=== PATIENT | female | born 1945 | race Caucasian/White ===

== ENCOUNTER → 2018-06-12 11:09 | Outpatient (CLI) | payer MEDICARE, OTHER, SELFPAY ==
--- NOTE | 2018-06-12 | DI.MG.S_ITS ---
BILATERAL DIGITAL SCREENING MAMMOGRAM 3D/2D WITH CAD: 06/12/2018 CLINICAL: Routine screening. Comparison is made to exams dated: 04/06/2016 mammogram, 09/03/2014 mammogram, and 02/16/2013 mammogram - [facility]. The tissue of both breasts is predominantly fatty. Current study was also evaluated with a Computer Aided Detection (CAD) system. No significant masses, calcifications, or other findings are seen in either breast. There has been no significant interval change. IMPRESSION: NEGATIVE There is no mammographic evidence of malignancy. A 1 year screening mammogram is recommended. This exam was interpreted at Station ID: [id number]. NOTE: For mammograms, a report in lay terms will be sent to the patient. Approximately 15% of breast malignancies will not be visualized mammographically. In the management of a palpable breast mass, a negative mammogram must not discourage biopsy of a clinically suspicious lesion. Electronically Signed By: Ethan johnson/sander:06/12/2018 12:35:18 letter sent: Normal Exam ACR BI-RADS Category 1: Negative [id number]
== END ==
PROVIDERS: Family Provider Nurse Practitioner; PCP Nurse Practitioner; Visit Provider Nurse Practitioner
DX: Z12.31 Encounter for screening mammogram for malignant neoplasm of breast (principal)
CPT/HCPCS: 77063; 77067

== ENCOUNTER → 2019-08-26 09:59 | Outpatient (CLI) | payer MEDICARE, OTHER, SELFPAY ==
[2019-08-26 10:35] LABS: BUN Creatinine Ratio 15.7 (6-22); Blood Urea Nitrogen 11 mg/dL (7-17); Estimated Glomerular Filt Rate > 60.0 mL/min (>60)
--- NOTE | 2019-08-26 11:23 | DI.CT.S_ITS ---
PROCEDURE: CT ABDOMEN PELVIS W CON INDICATIONS: ABDOMINAL PAIN TECHNIQUE: After the administration of oral and intravenous contrast, 5 mm thick sections acquired from the diaphragms to the symphysis. 5 mm thick coronal and sagittal reformats were performed. For radiation dose reduction, the following was used: automated exposure control, adjustment of mA and/or kV according to patient size. COMPARISON: [facility], CT, ABDOMEN/PELVIS WITH CONTRAST, 06/18/2016, 14:15. FINDINGS: Image quality: Excellent. ABDOMEN: Lung bases: Lung bases are clear. Heart size is normal. Solid organs: Liver is normal in size and enhancement. Gallbladder contains multiple small densely calcified gallstones each of the size that could result in cystic duct or common duct obstruction. Biliary system is non-dilated. Pancreas enhances normally. Spleen is normal in size and enhancement. No adrenal nodules. Kidneys are normal in size and enhancement, without hydronephrosis. Peritoneum and bowel: Stomach, small bowel, and colon loops are normal in caliber and wall thickness. No free fluid or air. Nodes and vessels: No retroperitoneal or mesenteric adenopathy. Aorta and inferior vena cava are normal in caliber. Miscellaneous: No ventral hernias. PELVIS: Genitourinary: Bladder wall thickness is normal. The the left adnexa appears to contain a solid rounded mass, measuring up to 2.5 cm AP and 2.8 cm transverse. This is contiguous with the sigmoid colon in that area which does not show evidence of acute diverticulitis. Miscellaneous: No inguinal hernias or adenopathy. Bones: No suspicious bony lesions. No vertebral body compression fractures. IMPRESSION: Possible left adnexal mass, measuring up to 2.5 x 2.8 cm. Pelvic ultrasound likely is warranted for more accurate assessment. Mild diverticulosis involves the sigmoid colon, no acute diverticulitis. Incidental note is made of densely calcified gallstones within the gallbladder lumen of a size that could easily transit into the cystic duct or common duct. Depending on clinical status followup surgical consultation related to this finding may be warranted. Dictated by: Lavon Ny M.D. on 08/26/2019 at 12:46 Approved by: Lavon Ny M.D. on 08/26/2019 at 12:50
== END ==
PROVIDERS: Family Provider Nurse Practitioner; PCP Nurse Practitioner; Referring Provider Student in an Organized Health Care Education/Training Program; Visit Provider Student in an Organized Health Care Education/Training Program
DX: R10.32 Left lower quadrant pain (principal); K57.30 Diverticulosis of large intestine without perforation or abscess without bleeding; K80.20 Calculus of gallbladder without cholecystitis without obstruction
CPT/HCPCS: 36415; 74177; 82565; 84520; Q9967

== ENCOUNTER → 2019-09-01 14:12 | Outpatient (CLI) | payer MEDICARE, OTHER, SELFPAY ==
--- NOTE | 2019-09-01 | DI.US.S_ITS ---
PROCEDURE: US PELVIC COMPLETE INDICATIONS: LEFT OVARIAN CYST TECHNIQUE: Real-time scanning was performed of the pelvic organs, with image documentation. Additional endovaginal scanning was necessary due to incomplete visualization of the adnexal and endometrial structures by transabdominal scanning. COMPARISON: None. FINDINGS: Transabdominal scanning: Limited scanning through the kidneys shows no hydronephrosis. No pathologic free abdominal or pelvic fluid. Endovaginal scanning: Uterus: Uterus is normal in size at 6.7 x 3.2 x 4 cm. The cervix appears thickened, with a nodule measuring 1.2 x 0.6 x 1 cm. The endometrium measures 2 mm in combined thickness. Ovaries: The right ovary measures 1.7 by 1 by 1.3 cm. The left ovary is not well-seen, secondary to shadowing from adjacent bowel gas. There is a left adnexal mass seen that measures 3 x 2.4 x 2.8 cm. IMPRESSION: Poor visualization of the left ovary, yet a 3 cm solid appearing left adnexal mass can be seen. This correlates well with the recent CT imaging. Further evaluation is recommended, beginning with a gynecological protocol MRI (without and with contrast) (assuming that there is no contraindication). Potential cervical mass seen measuring up to 1.3 cm. Please correlate with physical examination findings/direct visualization. Dictated by: Taurus Haas M.D. on 09/01/2019 at 14:35 Approved by: Taurus Haas M.D. on 09/01/2019 at 14:39
== END ==
PROVIDERS: Family Provider Nurse Practitioner; PCP Nurse Practitioner; Referring Provider Nurse Practitioner; Visit Provider Nurse Practitioner
DX: N83.202 Unspecified ovarian cyst, left side (principal)
CPT/HCPCS: 76830; 76856

== ENCOUNTER → 2019-09-04 11:44 | Outpatient (CLI) | payer MEDICARE, OTHER, SELFPAY ==
--- NOTE | 2019-09-04 | DI.MRI.S_ITS ---
PROCEDURE: MR PELVIS WO/W CON INDICATIONS: Other noninflammatory disorders of ovary, fallopia TECHNIQUE: Coronal HASTE, sagittal breath-hold T2 FSE; axial T1 FSE with and without fat saturation through the pelvis. Optional long- and short-axis uterine nonbreath-hold T2 FSE through the uterus. Sagittal or axial dynamic VIBE during administration of contrast. Post-contrast axial or coronal VIBE/2-D FLASH with fat saturation from the iliac crests to the symphysis. Optional diffusion weighted imaging and ADC may be performed. COMPARISON: [facility], CT, KIDNEY/ URETER/BLADDER, 04/24/2012, 4:58. [facility], CT, ABDOMEN/PELVIS WITH CONTRAST, 06/18/2016, 14:15. [facility], US, US PELVIC COMPLETE, 09/01/2019, 14:27. [facility], CT, CT ABDOMEN PELVIS W CON, 08/26/2019, 11:16. FINDINGS: Image quality: There is mild motion artifact. Uterus: Uterus is normal in size for age. Endometrium is normal in thickness. Junctional zone is normal in thickness at 12 mm or less. No discrete uterine mass identified. The old Adnexa: The left ovary demonstrates mild asymmetric enlargement relative to the right, measuring up to 3.4 x 2.4 x 3.0 cm. This appears similar in size compared to the prior studies dating back to 04/24/12, given differences in technique. Otherwise, no discrete suspicious adnexal mass. Right ovary is within normal size limits for age and also demonstrates no adnexal mass. Urinary system: Bladder wall is normal in thickness. Distal ureters are non distended. Urethra appears normal in morphology. Nodes and vessels: No pelvic or inguinal adenopathy by size criteria. Iliac vessels are normal in size. Bowel and peritoneum: No pathologic free pelvic fluid. Inferior colon and small bowel loops are normal in caliber. There is colonic diverticulosis without acute diverticulitis. Soft tissues: No inguinal hernias. No findings of pelvic floor incompetence in the absence of provocation. Bones: Marrow demonstrates normal overall signal. IMPRESSION: 1. Asymmetric enlargement of the left ovary demonstrated corresponding to the findings on recent CT and ultrasound. This appears similar in size compared to prior CT studies given differences in technique. Otherwise, no suspicious adnexal mass identified. Dictated by: Luis Tom M.D. on 09/04/2019 at 14:57 Approved by: Luis Tom M.D. on 09/04/2019 at 15:09
== END ==
PROVIDERS: Family Provider Nurse Practitioner; PCP Nurse Practitioner; Referring Provider Nurse Practitioner; Visit Provider Nurse Practitioner
DX: N83.8 Other noninflammatory disorders of ovary, fallopian tube and broad ligament (principal); K57.90 Diverticulosis of intestine, part unspecified, without perforation or abscess without bleeding
CPT/HCPCS: 72197; A9579

== ENCOUNTER 2019-10-07 14:38 | Emergency (ER) | payer MEDICARE, OTHER, SELFPAY ==
[2019-10-07 14:52] VITALS: BP 190/95; PULSE 88; RESP 14; TEMP 36.9; O2SAT 98
--- NOTE | 2019-10-07 15:31 | DI.CT.S_ITS ---
PROCEDURE: CT HEAD/BRAIN WO CON INDICATIONS: headache/htn TECHNIQUE: Noncontrast 4.5 mm thick angled axial sections acquired from the foramen magnum to the vertex, with coronal and sagittal reformats. For radiation dose reduction, the following was used: automated exposure control, adjustment of mA and/or kV according to patient size. COMPARISON: None. FINDINGS: Image quality: Excellent. CSF spaces: Basal cisterns are patent. No extra-axial fluid collections. The ventricles are symmetric in size and shape. Brain: No intracranial bleeds or masses. There is cerebral volume loss for age, with resultant ventricular and sulcal prominence. There are periventricular and deep white matter chronic small vessel ischemic changes. There is intracranial internal carotid artery atherosclerosis. Skull and face: Calvarium and visualized facial bones appear intact, without suspicious lesions. Incidental note is made of hyperostosis frontalis. This is not considered to be pathologic in a woman of this age. Sinuses: Visualized sinuses and mastoids are clear. IMPRESSION: Unremarkable intracranial study, without an imaging explanation found for the patient's presenting history of headache. No acute intracranial hemorrhage is seen. Note is made of age-appropriate brain parenchymal volume loss and chronic small vessel ischemic changes. Dictated by: Taurus Haas M.D. on 10/07/2019 at 14:57 Approved by: Taurus Haas M.D. on 10/07/2019 at 14:58
[2019-10-07 15:49] LABS: Add Manual Diff / Slide Review NO; Basophils Absolute Auto 100 /uL (0-100); Eosinophils Absolute Auto 100 /uL (0-450); Eosinophils Percent Auto 2.4 % (2-4); Hemoglobin 14.5 g/dL (12.0-16.0); Lymphocytes Absolute Auto 1600 /uL (1100-4500); Lymphocytes Percent Auto 27.5 % (25-40); Mean Corpuscular HGB Conc 34.6 % (30-36); Mean Corpuscular Hemoglobin 31.3 PG (26-34); Mean Corpuscular Volume 90.4 fL (80-100); Monocytes Absolute Auto 400 /uL (0-900); Monocytes Percent Auto 6.7 % (3-14); Neutrophils Absolute Auto 3700 /uL (1500-7000); Neutrophils Percent Auto 62.4 % (50-75); Platelet Count 207 X10^3/uL (150-400); Red Blood Cell Count 4.65 X10^6/uL (4.0-5.2); Red Cell Distribution Width 13.1 % (11.6-14.8); White Blood Cell Count 5.9 X10^3/uL (4.5-11.0)
[2019-10-07 16:01] LABS: Alanine Aminotransferase 16 IU/L (<35); Albumin 4.3 g/dL (3.5-5.0); Albumin Globulin Ratio 1.4 (1.0-2.8); Alkaline Phosphatase 63 U/L (38-126); Aspartate Aminotransferase 26 IU/L (14-36); BUN Creatinine Ratio 12.9 (6-22); Bilirubin Total 0.6 mg/dL (0.2-1.3); Blood Urea Nitrogen 11 mg/dL (7-17); Calcium 9.9 mg/dL (8.4-10.2); Carbon Dioxide 26 mmol/L (22-32); Chloride 102 mmol/L (98-107); Estimated Glomerular Filt Rate > 60.0 mL/min (>60); Globulin 3.1 g/dL (1.7-4.1); Glucose 160 mg/dL (80-110); HEMOLYSIS < 15 (0-50); Potassium 3.9 mmol/L (3.4-5.1); Sodium 135 mmol/L (137-145); Total Protein 7.4 g/dL (6.3-8.2)
[2019-10-07 16:13] LABS: Troponin I < 0.012 ng/mL (0.01-0.034)
[2019-10-07] MEDS: diphenhydrAMINE 50 MG/ML VIAL 25 MG IV (16:31)
[2019-10-07] MEDS: METOCLOPRAMIDE 10 MG/2 ML INJ IV (16:32)
[2019-10-07] MEDS: SODIUM CHLORIDE 0.9% 1,000 ML 1000 ML IV (16:32)
[2019-10-07] MEDS: KETOROLAC 60 MG/2 ML VIAL 15 MG IV (16:32)
[2019-10-07 17:11] VITALS: BP 153/71; PULSE 63; RESP 18; O2SAT 97
[2019-10-07 18:20] VITALS: BP 154/73; PULSE 68; RESP 20; O2SAT 96
--- NOTE | 2019-10-07 23:40 | ED.HA ---
HPI - Headache <Terrell Grimm [facility] - Last Filed: 10/08/19 00:03> General Chief Complaint: Headache Stated Complaint: Severe Headache for 6 Days Time Seen by Provider: 10/07/19 15:20 Source: patient Mode of arrival: Ambulatory Limitations: no limitations History of Present Illness HPI Narrative: This is a 74-year-old female, nonsmoker, who presents to ED with chief complain of headache for last 6 days. Reports history of migraine headache but this feels little different in terms of location, severity. Usually her migraine headache sumatriptan relieves her headache which has not at this time. Patient noticed her migraine headache improved after menopause. Patient reports had salpingo-oophorectomy on 09/18/2019 Due to tumor. There was a concern for post of infection and she was put on antibiotic medications cefdinir about a week ago. Patient is not sure if her headache is associated with new medication but states she has intermittent sharp pain in posterior head which radiating up and down her neck with pressure on top of her head. Patient is mildly nauseated but without vomiting. She reports for photophobia and is wearing sunglasses in dark room during this encounter. She also had loose stool for the last 2-3 days but denies blood in her stool. Pain is worse with exertion, like, movement of her head and neck and noise. She had tried Tylenol and her routine migraine headache medication sumatriptan without much effect. She is not on anticoagulants at this time. She denies facial droops, speech difficulty, dysphagia, weakness to 1 side of body, fever, chills, or unusual rashes. Patient also has history of hypo thyroidism. Related Data Home Medications Medication Instructions Recorded Confirmed LEVOTHYROXINE SODIUM 0.112 mg PO QDAY #0 01/21/12 albuterol sulfate [Proventil HFA] 1 puff INH PRN #17 gm 01/21/12 lisinopril 20 mg PO QDAY #0 01/21/12 montelukast [Singulair] 10 mg PO QDAY #0 01/21/12 trazodone 50 mg OR HS #0 06/18/16 cefdinir mg 10/08/19 Allergies Allergy/AdvReac Type Severity Reaction Status Date / Time No Known Drug Allergies Allergy Verified 10/07/19 17:11 Review of Systems <TAMEKA Santo - Last Filed: 10/08/19 00:03> Review of Systems Narrative: General: Denies fever, chills, fatigue, malaise, sweats. HEENT: Denies sinus pain, ear pain, sore throat, difficulty swallowing, dizziness. Respiratory: Denies dyspnea, cough, wheezing, hemoptysis, sputum. Cardiovascular: Denies chest pain, palpitations, orthopnea, edema. Gastrointestinal: Denies (+) nausea, vomiting, abdominal pain, (+) diarrhea, constipation, melena. : Denies dysuria, frequency, incontinence, hematuria, urinary retention. Musculoskeletal: Denies weakness, joint pain or bony pain. Skin: Denies rash, skin lesions, or other. Neurologic: HPI Psychiatric: No concerning psychosocial issues. 12-point review of systems is negative except for those stated above. Patient History <TAMEKA Santo - Last Filed: 10/08/19 00:03> Medical History Hypothyroidism (Acute) Ovarian tumor (Acute) Personal history of hyperthyroidism (Acute) Surgical History History of salpingo-oophorectomy (Acute) Social History Smoking Status: Never smoker Smoking Status: Never smoker Alcohol type: wine Substance Use Type: does not use Exam <TAMEKA Santo - Last Filed: 10/08/19 00:03> Narrative Exam Narrative: General appearance: well developed, well nourished, appears to be in discomfort Head: normocephalic, atraumatic, no scalp lesions, non-tender. ENT: Hearing grossly intact. Nose without bleeding, purulent discharge. Airway patent. Neck/Thyroid: neck supple, full range of motion, no visible masses or meningeal signs. No JVD, non-tender without lymphadenopathy. Skin: no suspicious rashes, lesions over visible areas. Warm and dry and appropriate color for ethnicity. Heart: no clubbing, no cyanosis, no edema. Lungs: Breathing even and unlabored. No stridor. No accessory muscles used. Able to speak in full sentences. Chest: normal shape and expansion. Abdomen: non-obese, non-distended. Neurologic: alert and oriented. Cognitive exam, PATIENT RELATIONS LIAISON and PNS grossly intact on informal exam. Psych: good eye contact, normal affect. Initial Vital Signs Initial Vital Signs: Vital Signs Temperature 98.5 F 10/07/19 14:52 Pulse Rate 88 10/07/19 14:52 Respiratory Rate 14 10/07/19 14:52 Blood Pressure 190/95 H 10/07/19 14:52 Pulse Oximetry 98 10/07/19 14:52 <Blanco Sharif DO - Last Filed: 10/13/19 07:23> Initial Vital Signs Initial Vital Signs: Vital Signs Temperature 98.5 F 10/07/19 14:52 Pulse Rate 88 10/07/19 14:52 Respiratory Rate 14 10/07/19 14:52 Blood Pressure 190/95 H 10/07/19 14:52 Pulse Oximetry 98 10/07/19 14:52 Scores <TAMEKA Santo - Last Filed: 10/08/19 00:03> GCS Johnathan coma scale eye opening: Spontaneous Browning coma scale verbal response: Orientated Johnathan coma scale motor response: Obey commands Browning coma scale total score: 15 Course <TAMEKA Santo - Last Filed: 10/08/19 00:03> Orders Ordered: Discontinued Medications Diphenhydramine HCl (Benadryl) 25 mg IV NOW ONE Stop: 10/07/19 16:16 Last Admin: 10/07/19 16:31 Dose: 25 mg Documented by: BLAINE Sodium Chloride (Normal Saline 0.9%) 1,000 mls @ 1,000 mls/hr IV BOLUS ONE Stop: 10/07/19 17:14 Last Infusion: 10/07/19 17:46 Dose: 0 mls/hr Documented by: Admin: 10/07/19 16:32 Dose: 1,000 mls/hr Documented by: BLAINE Ketorolac Tromethamine (Toradol) 15 mg IV NOW ONE Stop: 10/07/19 16:16 Last Admin: 10/07/19 16:32 Dose: 15 mg Documented by: BLAINE Metoclopramide HCl (Reglan) 10 mg IV NOW ONE Stop: 10/07/19 16:16 Last Admin: 10/07/19 16:32 Dose: 10 mg Documented by: BLAINE Vital Signs Vital signs: Vital Signs - 8 hr 10/07/19 17:11 10/07/19 18:20 Pulse Rate 63 68 Respiratory Rate 18 20 Blood Pressure 154/73 H Blood Pressure [Right Arm] 153/71 H Pulse Oximetry 97 96 <Blanco Sharif DO - Last Filed: 10/13/19 07:23> Orders Ordered: Discontinued Medications Diphenhydramine HCl (Benadryl) 25 mg IV NOW ONE Stop: 10/07/19 16:16 Last Admin: 10/07/19 16:31 Dose: 25 mg Documented by: BLAINE Sodium Chloride (Normal Saline 0.9%) 1,000 mls @ 1,000 mls/hr IV BOLUS ONE Stop: 10/07/19 17:14 Last Infusion: 10/07/19 17:46 Dose: 0 mls/hr Documented by: Admin: 10/07/19 16:32 Dose: 1,000 mls/hr Documented by: BLAINE Ketorolac Tromethamine (Toradol) 15 mg IV NOW ONE Stop: 10/07/19 16:16 Last Admin: 10/07/19 16:32 Dose: 15 mg Documented by: BLAINE Metoclopramide HCl (Reglan) 10 mg IV NOW ONE Stop: 10/07/19 16:16 Last Admin: 10/07/19 16:32 Dose: 10 mg Documented by: BLAINE Vital Signs Vital signs: Vital Signs - 8 hr 10/07/19 17:11 10/07/19 18:20 Pulse Rate 63 68 Respiratory Rate 18 20 Blood Pressure 154/73 H Blood Pressure [Right Arm] 153/71 H Pulse Oximetry 97 96 MDM - Headache <Terrell England-TAMEKA Ramirez - Last Filed: 10/08/19 00:03> Differential Diagnosis Differential diagnosis: Likely migraine, tension headache and other (Intracranial hemorrhage) Medical Records Attestation: I reviewed the patient's medical records. Lab Data Attestation: I reviewed the patient's lab results. Result diagrams: 10/07/19 15:40 10/07/19 15:40 Labs: Lab Results 10/07/19 10/07/19 Range/Units 15:40 15:40 WBC 5.9 (4.5-11.0) X10^3/uL RBC 4.65 (4.0-5.2) X10^6/uL Hgb 14.5 (12.0-16.0) g/dL Hct 42.0 (36-46) % MCV 90.4 (80-100) fL MCH 31.3 (26-34) PG MCHC 34.6 (30-36) % RDW 13.1 (11.6-14.8) % Plt Count 207 (150-400) X10^3/uL Neut % (Auto) 62.4 (50-75) % Lymph % (Auto) 27.5 (25-40) % [place] % (Auto) 6.7 (3-14) % Eos % (Auto) 2.4 (2-4) % Baso % (Auto) 1.0 (0-2) % Neut # (Auto) 3700 (1750-9828) /uL Lymph # (Auto) 1600 (9368-0682) /uL [place] # (Auto) 400 (0-900) /uL Eos # (Auto) 100 (0-450) /uL Baso # (Auto) 100 (0-100) /uL Sodium 135 L (137-145) mmol/L Potassium 3.9 (3.4-5.1) mmol/L Chloride 102 (98-107) mmol/L Carbon Dioxide 26 (22-32) mmol/L BUN 11 (7-17) mg/dL Creatinine 0.85 (0.52-1.04) mg/dL Estimated GFR > 60.0 (>60) mL/min BUN/Creatinine Ratio 12.9 (6-22) Glucose 160 H (80-110) mg/dL Calcium 9.9 (8.4-10.2) mg/dL Total Bilirubin 0.6 (0.2-1.3) mg/dL AST 26 (14-36) IU/L ALT 16 (<35) IU/L Alkaline Phosphatase 63 (38-126) U/L Troponin I < 0.012 (0.01-0.034) ng/mL Total Protein 7.4 (6.3-8.2) g/dL Albumin 4.3 (3.5-5.0) g/dL Globulin 3.1 (1.7-4.1) g/dL Albumin/Globulin Ratio 1.4 (1.0-2.8) Imaging Data CT scan - head: Radiologist's Impression: [address] [address] [address] Scan Report Signed Patient: Hazel Rothman EMR#: [id number] : 6Acct:[id number] Age/Sex: 74 / FDate of Service: 10/07/19 Loc: ED Accession Number: [id number] Procedure: CT head/brain wo con Ordering Provider: Terrell Grimm PROCEDURE: CT HEAD/BRAIN WO CON INDICATIONS: headache/htn TECHNIQUE: Noncontrast 4.5 mm thick angled axial sections acquired from the foramen magnum to the vertex, with coronal and sagittal reformats. For radiation dose reduction, the following was used: automated exposure control, adjustment of mA and/or kV according to patient size. COMPARISON: None. FINDINGS: Image quality: Excellent. CSF spaces: Basal cisterns are patent. No extra-axial fluid collections. The ventricles are symmetric in size and shape. Brain: No intracranial bleeds or masses. There is cerebral volume loss for age, with resultant ventricular and sulcal prominence. There are periventricular and deep white matter chronic small vessel ischemic changes. There is intracranial internal carotid artery atherosclerosis. Skull and face: Calvarium and visualized facial bones appear intact, without suspicious lesions. Incidental note is made of hyperostosis frontalis. This is not considered to be pathologic in a woman of this age. Sinuses: Visualized sinuses and mastoids are clear. IMPRESSION: Unremarkable intracranial study, without an imaging explanation found for the patient's presenting history of headache. No acute intracranial hemorrhage is seen. Note is made of age-appropriate brain parenchymal volume loss and chronic small vessel ischemic changes. Dictated by: Taurus Haas M.D. on 10/07/2019 at 14:57 Approved by: Taurus Haas M.D. on 10/07/2019 at 14:58 ECG Data Attestation: I personally reviewed and interpreted this ECG as follows: Prior ECG tracings: available for review Interpretation: Normal sinus rhythm rate at 70. Left [place] deviation. MT interval 152, QRS duration 68, QT/QTC 432/[address] changes. No significant changes from previous EKG tracing. MDM Narrative Medical decision making narrative: This is 74 year female who has history of migraine headache presents to ED with ongoing headache for 6 days with hypertension. This patient's headache feels different from previous migraine headaches, duration, and severity with hypertension head CT was obtained without no acute findings were noted. No focal neurologic deficit was appreciated during physical exam. EKG is sinus rhythm. Troponin was negative. CBC was unremarkable. Chemistry was unremarkable except mild hyperglycemia of 160 and this hyponatremia 135. No history of heart failure and patient given 1 L of normal saline infusion with IV Toradol, Benadryl, and Reglan. When patient was re-evaluated she states feeling so much better at this time and was ready to go home. Findings were shared with the patient and return precautions were discussed with patient. Patient advised to have good rest when she gets home. It is unclear if Cefdnir is causing her migraine headache but her pain was treated as migraine headache. Patient verbalized understanding and agreement with the treatment plan. <Blanco Sharif, DO - Last Filed: 10/13/19 07:23> Lab Data Labs: Lab Results 10/07/19 10/07/19 Range/Units 15:40 15:40 WBC 5.9 (4.5-11.0) X10^3/uL RBC 4.65 (4.0-5.2) X10^6/uL Hgb 14.5 (12.0-16.0) g/dL Hct 42.0 (36-46) % MCV 90.4 (80-100) fL MCH 31.3 (26-34) PG MCHC 34.6 (30-36) % RDW 13.1 (11.6-14.8) % Plt Count 207 (150-400) X10^3/uL Neut % (Auto) 62.4 (50-75) % Lymph % (Auto) 27.5 (25-40) % [place] % (Auto) 6.7 (3-14) % Eos % (Auto) 2.4 (2-4) % Baso % (Auto) 1.0 (0-2) % Neut # (Auto) 3700 (0206-4694) /uL Lymph # (Auto) 1600 (2524-8312) /uL [place] # (Auto) 400 (0-900) /uL Eos # (Auto) 100 (0-450) /uL Baso # (Auto) 100 (0-100) /uL Sodium 135 L (137-145) mmol/L Potassium 3.9 (3.4-5.1) mmol/L Chloride 102 (98-107) mmol/L Carbon Dioxide 26 (22-32) mmol/L BUN 11 (7-17) mg/dL Creatinine 0.85 (0.52-1.04) mg/dL Estimated GFR > 60.0 (>60) mL/min BUN/Creatinine Ratio 12.9 (6-22) Glucose 160 H (80-110) mg/dL Calcium 9.9 (8.4-10.2) mg/dL Total Bilirubin 0.6 (0.2-1.3) mg/dL AST 26 (14-36) IU/L ALT 16 (<35) IU/L Alkaline Phosphatase 63 (38-126) U/L Troponin I < 0.012 (0.01-0.034) ng/mL Total Protein 7.4 (6.3-8.2) g/dL Albumin 4.3 (3.5-5.0) g/dL Globulin 3.1 (1.7-4.1) g/dL Albumin/Globulin Ratio 1.4 (1.0-2.8) Discharge Plan Departure Patient Disposition: Home Clinical Impression: Migraine Qualifiers: Migraine type: unspecified Status migrainosus presence: without status migrainosus Intractability: not intractable Qualified Code(s): G43.909 - Migraine, unspecified, not intractable, without status migrainosus Discharge Date/Time: 10/07/19 18:21 Instructions: DI for Migraine Activity Restrictions/Additional Instructions: You have been diagnosed with [headache likely migraine headache]. What to do: *Take your medications as directed. Please continue with her medication. Hopefully can get some rest when you get home. *Follow up with your primary care provider in 2-3 days, call for an appointment. Let them know you were seen in the ED and that we asked you to be seen in follow up. *Return to ED if you have any new, worsening, or concerning symptoms, such as [chest pain, breathing difficulty, unable to tolerate fluids, or any acute concerns, weakness on 1 side of body, speech difficulty, vision change, fever, unusual rashes or any acute concerns]. Prescriptions: No Action montelukast [Singulair] 10 MG tablet 10 mg PO QDAY Qty: 0 RF: 0 LEVOTHYROXINE SODIUM 0.112 mg PO QDAY Qty: 0 RF: 0 lisinopril 20 MG tablet 20 mg PO QDAY Qty: 0 RF: 0 albuterol sulfate [Proventil HFA] 90 MCG/PUFF HFA aerosol inhaler 1 puff INH PRN Qty: 17 RF: 0 trazodone 50 MG tablet 50 mg OR HS Qty: 0 RF: 0 cefdinir 300 mg capsule RF: 0 Referrals: Monica Albright ARNP [Primary Care Provider] - <Blanco Sharif, - Last Filed: 10/13/19 07:23> Cosign ED Attending Cosignature Attestation: Dr Sharif Co-Sign Statement: I was available for consultation during this patient's emergency department visit. This chart is signed by myself for administrative purposes only. I did not have direct contact with this patient during this visit. They were seen independently by the APC.
== END 2019-10-07 18:21 | disposition home or self-care (01) ==
PROVIDERS: Emergency Provider Nurse Practitioner Family; Family Provider Nurse Practitioner; PCP Nurse Practitioner
DX: G43.909 Migraine, unspecified, not intractable, without status migrainosus (principal)
CPT/HCPCS: 36415; 70450; 80053; 84484; 85025; 93005; 96361; 96374; 96375; 99284; J1200; J1885; J2765

== ENCOUNTER → 2019-11-05 11:58 | Outpatient (CLI) | payer MEDICARE, OTHER, SELFPAY ==
--- NOTE | 2019-11-05 | DI.MRI.S_ITS ---
PROCEDURE: MR ANGIO HEAD WO CON INDICATIONS: HEADACHE TECHNIQUE: Noncontrast axial 3-D [id number] MR angiogram, with 3-dimensional maximum intensity projection (MIP) reformats of the internal carotid arteries and posterior circulation then performed. COMPARISON: [facility], MR, MR HEAD/BRAIN WO/W CON, 11/05/2019, 13:00. [facility], CT, CT HEAD/BRAIN WO CON, 10/07/2019, 15:41. FINDINGS: Image quality: Excellent. Anterior circulation: Generalized irregularity is seen involving the intracranial internal carotid arteries. There is a hypoplastic right A1 segment, with a corresponding robust left A1 segment. This is considered to be a normal developmental variant of the [place], of typically no clinical consequence. The flow within the paired anterior cerebral arteries is otherwise normal and symmetric. The flow within the middle cerebral arteries is normal and symmetric. The anterior communicating artery is well seen. No stenoses, occlusions, or aneurysms. Posterior circulation: Visualized portions of the vertebral arteries demonstrate normal caliber, and join to form a normal appearing basilar artery. The flow within the posterior cerebral arteries is normal and symmetric. No stenoses, occlusions, or aneurysms. IMPRESSION: No findings of aneurysm are seen. Generalized irregularity is seen involving the intracranial internal carotid arteries, which is attributed to atherosclerotic disease. 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 Dictated by: Taurus Haas M.D. on 11/05/2019 at 12:46 Approved by: Taurus Haas M.D. on 11/05/2019 at 12:48
--- NOTE | 2019-11-05 | DI.MG.S_ITS ---
BILATERAL DIGITAL SCREENING MAMMOGRAM 3D/2D WITH CAD: 11/05/2019 CLINICAL: Routine screening. Comparison is made to exams dated: 06/12/2018 mammogram, 04/06/2016 mammogram, 09/03/2014 mammogram, 02/16/2013 mammogram, 02/05/2011 mammogram, and 09/25/2007 mammogram - [facility]. The tissue of both breasts is predominantly fatty. Current study was also evaluated with a Computer Aided Detection (CAD) system. No significant masses, calcifications, or other findings are seen in either breast. There has been no significant interval change. IMPRESSION: NEGATIVE There is no mammographic evidence of malignancy. A 1 year screening mammogram is recommended. This exam was interpreted at Station ID: [id number]. NOTE: For mammograms, a report in lay terms will be sent to the patient. Approximately 15% of breast malignancies will not be visualized mammographically. In the management of a palpable breast mass, a negative mammogram must not discourage biopsy of a clinically suspicious lesion. Electronically Signed By: Pranav owens/sander:11/05/2019 12:31:55 letter sent: Normal Exam ACR BI-RADS Category 1: Negative 3341F
--- NOTE | 2019-11-05 | DI.MRI.S_ITS ---
PROCEDURE: MR HEAD/BRAIN WO/W CON INDICATIONS: ROUTINE SCREENING MAMMOGRAM HEADACHE TECHNIQUE: Noncontrast axial T1 spin echo, axial T2 fast spin echo, sagittal and axial FLAIR, coronal T2 fast spin echo, axial gradient echo, axial diffusion and ADC through the brain. After the administration of contrast, axial and coronal T1 spin echo with fat saturation through the brain. COMPARISON: [facility], MR, MR ANGIO HEAD WO CON, 11/05/2019, 12:51. [facility], CT, CT HEAD/BRAIN WO CON, 10/07/2019, 15:41. FINDINGS: Image quality: Excellent. CSF spaces: Basal cisterns are patent. No extra-axial fluid collections. Ventricles are normal in size and shape. Brain: No midline shift. No intracranial bleeds or masses. No abnormal intracranial enhancement. There is cerebral volume loss for age. There is periventricular white matter chronic small vessel ischemic change. The brainstem appears normal. Diffusion-weighted images demonstrate no acute ischemic insults. No chronic ischemic insults. Normal intravascular flow voids are present. Skull and face: Calvarial marrow is normal in signal. Orbits appear normal. Note is made of bilateral lens replacements. Sinuses: Sinuses and mastoids appear clear. IMPRESSION: Unremarkable intracranial study for age, without a cause of headache identified. No masses or abnormal enhancement can be seen. Dictated by: Taurus Haas M.D. on 11/05/2019 at 12:49 Approved by: Taurus Haas M.D. on 11/05/2019 at 12:50
== END ==
PROVIDERS: Family Provider Nurse Practitioner; PCP Nurse Practitioner; Referring Provider Nurse Practitioner; Visit Provider Nurse Practitioner
DX: Z12.31 Encounter for screening mammogram for malignant neoplasm of breast (principal); R51 Headache; I65.23 Occlusion and stenosis of bilateral carotid arteries
CPT/HCPCS: 70544; 70553; 77063; 77067; A9579

== ENCOUNTER → 2021-08-28 09:28 | Outpatient (CLI) | payer MEDICARE, OTHER, SELFPAY ==
[2021-08-28 11:01] LABS: COVID19 -Nasal RAPID Negative (Negative)
== END ==
PROVIDERS: Family Provider Nurse Practitioner; PCP Nurse Practitioner; Visit Provider Family Medicine Sleep Medicine
DX: Z20.822 Contact with and (suspected) exposure to COVID-19 (principal)
CPT/HCPCS: 87635; C9803

== ENCOUNTER 2021-08-30 13:30 | Day surgery (SDC) | payer MEDICARE, OTHER, SELFPAY ==
[2021-08-30] VITALS (7 sets, daily range): BP systolic 95–132; BP diastolic 58–76; PULSE 55–70; RESP 13–21; TEMP 36.1–37; O2SAT 94–97; BMI 26.1
--- NOTE | 2021-08-30 | PATH_ITS ---
[facility] Accession Number: [id number] No. of containers..02 Tissue . 01 Material submitted: . PART A: colon - ASCENDING COLON POLYPS PART B: colon - SIGMOID COLON POLYP . 02 Diagnosis: A. Ascending Colon, Polyps, Biopsies: Serrated lesion, favor sessile serrated adenoma. . B. Sigmoid Colon, Polyp, Biopsy: Tubular adenoma. [facility] 09/04/2021 1523 Local . 02 Electronically signed: . Юлия Quigley MD, Pathologist NPI- [id number] . 01 Gross description: . Part A: ASCENDING COLON POLYPS: Received in formalin are 3 fragment(s) of gabriel, soft tissue measuring 0.5 x 0.3 x 0.2 cm to 0.1 x 0.1 x 0.1 cm submitted entirely in 1 cassette(s) Part B: SIGMOID COLON POLYP: Received in formalin is 1 fragment(s) of gabriel, soft tissue measuring 0.7 x 0.3 x 0.2 cm submitted entirely in 1 cassette(s) /CPE 08/31/2021 0731 Local . 02 Pathologist provided ICD-10: D12.2, D12.5 . 02 CPT . 823536, [id number] Specimen Comment: A courtesy copy of this report has been sent to [phone] Performed at: 01 [facility] [address] [id number] MD Luis Mcnair MD Phone: [phone] Performed at: 02 [facility] [address] [place], [place] [id number] MD Юлия Quigley MD Phone: [phone]
[2021-08-30] MEDS: SODIUM CHLORIDE 0.9% 1,000 ML 150 ML IV (14:16)
--- NOTE | 2021-08-30 14:24 | P.HP_ITS ---
History of Present Illness History of Present Illness Date Patient Seen: 08/30/21 Chief complaint: SDC Narrative: Personal history of colon polyps Patient History Medical History (Updated 08/30/21 @ 13:55 by Emliiana Pineda RN) Abnormal bowel movement Adnexal mass Asymptomatic gallstones Colon adenomas COPD with asthma Diverticulitis Hypertension Hypothyroidism Ovarian tumor Personal history of hyperthyroidism Surgical History (Updated 08/30/21 @ 13:55 by Emiliana Pineda RN) History of salpingo-oophorectomy History of tonsillectomy Family & Social History Social History: household members spouse Tobacco & Substance use: Smoking Status Never smoker alcohol intake current alcohol intake frequency 0-2 drinks per day Substance Use Type does not use Meds Home Medications and Allergies Home Medications Medication Instructions Recorded Confirmed Type LEVOTHYROXINE SODIUM 100 mg PO QDAY #0 01/21/12 08/30/21 History albuterol sulfate 90 mcg/actuation 1 puff INH PRN #17 gm 01/21/12 08/30/21 History aerosol inhaler (Proventil HFA) montelukast 10 mg tablet 10 mg PO BEDTIME #0 01/21/12 08/30/21 History (Singulair) trazodone 50 mg tablet 50 mg OR HS #0 06/18/16 08/30/21 History lisinopril 5 mg tablet 5 mg PO BEDTIME 08/30/21 08/30/21 History sumatriptan succinate 25 mg tablet 25 mg PO PRN PRN 08/30/21 08/30/21 History Allergies Allergy/AdvReac Type Severity Reaction Status Date / Time No Known Drug Allergies Allergy Verified 08/30/21 13:52 Review of Systems Review of Systems Narrative: Negative Exam Vital Signs (past 8 hours): - 08/30/21 14:09 Temperature 98.6 F Pulse Rate 66 Respiratory Rate 16 Blood Pressure 130/76 Pulse Oximetry 95 Oxygen Delivery Method Room Air Narrative Exam Narrative: Awake alert and oriented x3, pupils equal round reactive to light, oropharynx clear, heart regular rate and rhythm, lungs clear to auscultation bilaterally, abdomen nontender and nondistended, extremities without edema, no gross neurologic deficits noted Assessment & Plan Assessment & Plan narrative: Personal history of colon polyps for colonoscopy today Time Spent With Patient Critical Care time: I spent a total of [] minutes of critical care time on this patient's care tod ay; this time is exclusive of procedural time.
--- NOTE | 2021-08-30 15:00 | PM.OP.COLON ---
Operative Date/Time/Diagnoses Date of procedure: 08/30/21 Procedure & Clinicians Study performed: Colonoscopy with cold forceps and cold snare polypectomy Indications: Personal history of colon polyps. Screening colonoscopy. Last colonoscopy was performed in 2017. Procedure Notes Procedure in detail: Prior to the procedure, history and physical was performed, and patient medications and allergies were reviewed. Preprocedure nursing history and assessment was reviewed. Patient identification and proposed procedure were verified by the physician and nurse in the procedure room. The physical status of the patient was reassessed after the procedure. After informed consent was obtained including risks, benefits, and alternatives, the scope was passed under direct vision. Throughout the procedure, the patient's blood pressure, pulse, and oxygen saturations were monitored continuously. The colonoscope was introduced through the anus and advanced to the cecum as identified by the appendiceal orifice and ileocecal valve. The patient tolerated the procedure well. Bowel prep was deemed adequate to detect polyps greater than 5 mm. DARELL was unremarkable. Perianal examination revealed prolapsed internal hemorrhoids. Retroflexion in the rectum revealed large grade 2 internal hemorrhoids. The entire colon was tortuous. Multiple medium-sized diverticula noted in the ascending and sigmoid colon A 2 mm sessile polyp was removed from the ascending colon using a Jumbo forceps and was retrieved. A 4 mm sessile polyp was removed from the ascending colon and a 6 mm sessile polyp was removed from the sigmoid colon using a cold snare and were retrieved Complications: other (EBL minimal. No complications) Impression: Prolapsed internal hemorrhoids. Tortuous colon Ascending and sigmoid colon diverticulosis 3 polyps measuring between 2 mm and 6 mm were removed from the ascending colon and sigmoid colon Post-procedure Plan for aftercare: Follow-up pathology results Repeat colonoscopy at a date to be determined based on pathology results Resume home medications High fiber diet Follow-up in GI clinic as previously scheduled Patient has a contact number available for emergencies. The signs and symptoms of potential delayed complications were discussed with the patient. Return to normal activities tomorrow. Written discharge instructions were provided to the patient. Discharge home with escort
== END 2021-08-30 15:36 | disposition home or self-care (01) ==
PROVIDERS: Family Provider Nurse Practitioner; PCP Nurse Practitioner; Referring Provider Internal Medicine; Visit Provider Internal Medicine
PROC: 0DJD8ZZ Inspection of Lower Intestinal Tract, Via Natural or Artificial Opening Endoscopic (ICD-10-PCS; CPT 45378; principal; 2021-08-30 15:30)
DX: Z12.11 Encounter for screening for malignant neoplasm of colon (principal); Z86.010 Personal history of colon polyps; J44.9 Chronic obstructive pulmonary disease, unspecified; E03.9 Hypothyroidism, unspecified; I10 Essential (primary) hypertension; K57.30 Diverticulosis of large intestine without perforation or abscess without bleeding; K64.1 Second degree hemorrhoids; D12.2 Benign neoplasm of ascending colon; D12.5 Benign neoplasm of sigmoid colon
CPT/HCPCS: 45385; 45380; J2405; J2704

== ENCOUNTER → 2022-10-03 09:14 | Outpatient (CLI) | payer MEDICARE, OTHER, SELFPAY ==
--- NOTE | 2022-10-03 | DI.US.S_ITS ---
LIMITED ULTRASOUND OF RIGHT BREAST: 10/03/2022 CLINICAL: Focal right breast pain. Comparison is made to exams dated: 10/03/2022 mammogram, 11/05/2019 mammogram, 06/12/2018 mammogram, 04/06/2016 mammogram, 09/03/2014 mammogram, and 02/16/2013 mammogram - [facility]. Real-time ultrasound of the right breast was performed. Martinez scale images of the real-time examination were reviewed. No significant abnormalities were seen sonographically in the right breast. IMPRESSION: NEGATIVE There is no sonographic evidence of malignancy. There is no abnormality seen in the right breast to correspond with the area of clinical concern, however, clinical correlation and clinical followup are recommended. Return to annual mammogram screening schedule is recommended. This exam was interpreted at Station ID: [id number]. Electronically Signed By: Roberto Grady M.D. lc/:10/03/2022 10:46:02 letter sent: Clinical Evaluation Ultrasound BI-RADS: 1 Negative
--- NOTE | 2022-10-03 | DI.MG.S_ITS ---
BILATERAL DIGITAL DIAGNOSTIC MAMMOGRAM 3D/2D: 10/03/2022 CLINICAL: Right breast pain. Comparison is made to exams dated: 11/05/2019 mammogram, 06/12/2018 mammogram, and 04/06/2016 mammogram - [facility]. Both breasts are almost entirely fatty (category a/<25% glandular tissue). No significant masses, calcifications, or other findings are seen in either breast. IMPRESSION: INCOMPLETE: NEEDS ADDITIONAL IMAGING EVALUATION There is no abnormality seen in the right breast to correspond with the area of clinical concern and pain, however, ultrasound is recommended. Based on the Tyrer Cuzick model (a risk assessment model) the patient's lifetime risk is 1.9% and her 10 year risk is 0.0%. According to the ACR, ACS, and NCCN guidelines, an annual breast MRI exam along with mammogram is recommended if the patient's lifetime risk is 20% or greater. This exam was interpreted at Station ID: [id number]. NOTE: For mammograms, a report in lay terms will be sent to the patient. Approximately 15% of breast malignancies will not be visualized mammographically. In the management of a palpable breast mass, a negative mammogram must not discourage biopsy of a clinically suspicious lesion. Electronically Signed By: Roberto Grady M.D. lc/:10/03/2022 10:43:37 ACR BI-RADS Category 0: Incomplete 3340F
== END ==
PROVIDERS: Family Provider Nurse Practitioner; PCP Nurse Practitioner; Referring Provider Nurse Practitioner; Visit Provider Nurse Practitioner
DX: N64.4 Mastodynia (principal); R92.2 Inconclusive mammogram
CPT/HCPCS: 76642; 77066; G0279

== ENCOUNTER 2023-05-01 12:41 | Emergency (ER) | payer MEDICARE, OTHER, SELFPAY ==
[2023-05-01] VITALS (7 sets, daily range): BP systolic 133–180; BP diastolic 62–77; PULSE 57–78; RESP 7–20; TEMP 37; O2SAT 94–98; BMI 26.1
--- NOTE | 2023-05-01 12:55 | DI.CT.S_ITS ---
PROCEDURE: CT HEAD/BRAIN WO CON INDICATIONS: sudden dizziness TECHNIQUE: Noncontrast 4.5 mm thick angled axial sections acquired from the foramen magnum to the vertex, with coronal and sagittal reformats. For radiation dose reduction, the following was used: automated exposure control, adjustment of mA and/or kV according to patient size. COMPARISON: [facility], CT, CT HEAD/BRAIN WO CON, 10/07/2019, 15:41. FINDINGS: Image quality: Diagnostic. CSF spaces: Basal cisterns are patent. No extra-axial fluid collections. The ventricles are symmetric in size and shape. Brain: No intracranial bleeds or masses. There is cerebral volume loss for age, with resultant ventricular and sulcal prominence. There are periventricular and deep white matter chronic small vessel ischemic changes. There is intracranial internal carotid artery atherosclerosis. Skull and face: Calvarium and visualized facial bones appear intact, without suspicious lesions. Sinuses: Visualized sinuses and mastoids are clear. IMPRESSION: 1. No acute intracranial process. 2. Mild atrophy and chronic microvascular ischemic changes. Dictated by: Yessy Carrera M.D. on 05/01/2023 at 13:29 Approved by: Yessy Carrera M.D. on 05/01/2023 at 13:29
--- NOTE | 2023-05-01 12:55 | DI.RAD.S_ITS ---
PROCEDURE: XR CHEST 1V INDICATIONS: chest pain TECHNIQUE: One view of the chest was acquired. COMPARISON: None. FINDINGS: Surgical changes and devices: None. Lungs and pleura: Lungs are clear. No pleural effusions or pneumothorax. Mediastinum: Mediastinal contours appear normal. Heart size is mildly prominent. Bones and chest wall: No suspicious bony lesions. Overlying soft tissues appear unremarkable. IMPRESSION: No acute pulmonary process. Dictated by: Yessy Carrera M.D. on 05/01/2023 at 13:28 Approved by: Yessy Carrera M.D. on 05/01/2023 at 13:28
[2023-05-01 13:24] LABS: Add Manual Diff / Slide Review NO; Basophils Absolute Auto 0 /uL (0-100); Basophils Percent Auto 0.8 % (0-2); Eosinophils Absolute Auto 100 /uL (0-450); Eosinophils Percent Auto 1.3 % (2-4); Hematocrit 41.4 % (36-46); Hemoglobin 13.9 g/dL (12.0-16.0); Lymphocytes Absolute Auto 2000 /uL (1100-4500); Lymphocytes Percent Auto 39.4 % (25-40); Mean Corpuscular HGB Conc 33.6 % (30-36); Mean Corpuscular Hemoglobin 30.5 PG (26-34); Mean Corpuscular Volume 90.7 fL (80-100); Monocytes Absolute Auto 400 /uL (0-900); Monocytes Percent Auto 8.9 % (3-14); Neutrophils Absolute Auto 2500 /uL (1500-7000); Neutrophils Percent Auto 49.6 % (50-75); Platelet Count 162 X10^3/uL (150-400); Red Blood Cell Count 4.56 X10^6/uL (4.0-5.2); Red Cell Distribution Width 13.5 % (11.6-14.8)
[2023-05-01 13:29] LABS: Prothrombin Time 11.1 SECONDS (9.4-12.5)
[2023-05-01 13:32] LABS: PTT Partial Thromboplastin Tim 29 SECONDS (25.1-36.5)
[2023-05-01 13:34] LABS: Alanine Aminotransferase 16 IU/L (<35); Albumin 4.1 g/dL (3.5-5.0); Albumin Globulin Ratio 1.3 (1.0-2.8); Alkaline Phosphatase 64 U/L (38-126); BUN Creatinine Ratio 21.2 (6-22); Bilirubin Total 0.7 mg/dL (0.2-1.3); Blood Urea Nitrogen 14 mg/dL (7-17); Calcium 9.3 mg/dL (8.4-10.2); Carbon Dioxide 24 mmol/L (22-32); Chloride 104 mmol/L (98-107); Creatine Kinase 69 U/L (30-135); Estimated Glomerular Filt Rate > 60 mL/min (>60); Globulin 3.1 g/dL (1.7-4.1); Glucose 131 mg/dL (80-110); Lipase 87 U/L (23-300); Sodium 135 mmol/L (137-145); Total Protein 7.2 g/dL (6.3-8.2)
[2023-05-01 13:46] LABS: Troponin I < 0.012 ng/mL (0.01-0.034)
--- NOTE | 2023-05-01 13:56 | ED_ITS ---
HPI - Neuro Symptoms/Deficit General Chief Complaint: Neuro Symptoms/Deficit Stated Complaint: THINKS HAD TIA ABOUT AN HOUR AGO Time Seen by Provider: 05/01/23 13:43 Source: patient Mode of arrival: Ambulatory History of Present Illness HPI Narrative: Patient is a 78-year-old female. Approximately 1 hour prior to arrival here in the emergency department she had a 12nd episode where she states she was lightheaded. She did have to sit down. During the time she did not have chest pain, palpitations. States was not a vertigo sensation. She now has a slight headache but it is very minor. She has a history of migraines but did not have a migraine headache at the time of these symptoms. She did not pass out. Not on blood thinners. Has never had this happened in the past. No history of CVA/TIA. She does have history of hypertension. Takes her blood pressure at home on a regular basis and states that it is frequently in the 110s to 120 range systolic. She took her blood pressure just prior to arrival and was 129. No abdominal pain or nausea or vomiting. On Anticoagulants: No Related Data Home Medications Medication Instructions Recorded Confirmed LEVOTHYROXINE SODIUM 100 mg PO QDAY ##0 01/21/12 08/30/21 albuterol sulfate 90 mcg/actuation 1 puff INH PRN ##17 01/21/12 08/30/21 aerosol inhaler (Proventil HFA) montelukast 10 mg tablet 10 mg PO BEDTIME ##0 01/21/12 08/30/21 (Singulair) trazodone 50 mg tablet 50 mg OR HS ##0 06/18/16 08/30/21 lisinopril 5 mg tablet 5 mg PO BEDTIME 08/30/21 08/30/21 sumatriptan succinate 25 mg tablet 25 mg PO PRN PRN Migraine Headache 08/30/21 08/30/21 Allergies Allergy/AdvReac Type Severity Reaction Status Date / Time No Known Drug Allergies Allergy Verified 08/30/21 13:52 Review of Systems Review of Systems ROS Unobtainable: All systems reviewed & are unremarkable except as noted in HPI and below Hematologic/Lymphatic On Anticoagulants: No Patient History Medical History Asymptomatic gallstones Adnexal mass Diverticulitis Abnormal bowel movement Colon adenomas COPD with asthma Hypertension Personal history of hyperthyroidism Hypothyroidism Ovarian tumor Surgical History (Updated 08/30/21 @ 13:55 by Emiliana Pineda RN) History of tonsillectomy History of salpingo-oophorectomy Social History household members: spouse Smoking Status: Never smoker alcohol intake: current Smoking Status: Never smoker alcohol intake frequency: 0-2 drinks per day Alcohol type: wine Substance Use Type: does not use Exam Initial Vital Signs Initial Vital Signs: Vital Signs Temperature 98.6 F 05/01/23 12:45 Pulse Rate 60 05/01/23 12:45 Respiratory Rate 20 05/01/23 12:45 Blood Pressure 163/74 H 05/01/23 12:45 Pulse Oximetry 98 05/01/23 12:45 Oxygen Delivery Method Room Air 05/01/23 12:45 Const General: cooperative, comfortable and No ill appearing HENMT Head: normal to inspection and normocephalic Resp Effort & Inspection: normal respiratory effort Auscultation: clear to auscultation bilaterally Cardio Rate: regular rate Rhythm: regular rhythm Skin General: no rashes or lesions noted Neuro General: patient alert, patient awake, patient oriented x3 and moves all extremities Cranial Nerves: CN's II-XI intact bilaterally Cognition: normal cognition Speech: speech normal Sensory Exam: no sensory deficits noted Coordination: [id number] test normal and [id number] test normal Extrem General: normal to inspection and capillary refill normal Scores ABCD2 Age >= 60 years: yes Initial BP. Either SBP >= 140 or DBP >= 90.: no Clinical features of the TIA: other symptoms Duration of symptoms: < 10 minutes History of diabetes: no ABCD2 Score: 1 Course Orders Ordered: ED Orders 05/01/23 12:55 CT head/brain wo con Stat XR chest 1V Stat EKG-12 Lead Stat 05/01/23 13:02 Complete Blood Count AUTO DIFF Stat Comprehensive Metabolic Panel Stat Lipase Stat Magnesium Stat PTT Partial Thromboplastin Kal[place] Stat Prothrombin Time INR Stat Troponin & CK Cardiac Panel Stat 05/01/23 13:29 Urine Microscopic Stat Vital Signs Vital signs: Vital Signs - 8 hr 05/01/23 12:45 05/01/23 13:33 05/01/23 13:36 Temperature 98.6 F Pulse Rate 60 78 Respiratory Rate 20 Blood Pressure 163/74 H 180/77 H Pulse Oximetry 98 97 Oxygen Delivery Method Room Air 05/01/23 13:36 05/01/23 14:00 05/01/23 14:01 Temperature Pulse Rate 67 60 60 Respiratory Rate 7 L 14 16 Blood Pressure Pulse Oximetry 96 95 94 Oxygen Delivery Method 05/01/23 14:01 05/01/23 14:30 05/01/23 14:30 Temperature Pulse Rate 60 Respiratory Rate 18 Blood Pressure 140/66 138/66 Pulse Oximetry 96 Oxygen Delivery Method 05/01/23 15:00 05/01/23 15:00 Temperature Pulse Rate 57 L Respiratory Rate 13 Blood Pressure 133/62 Pulse Oximetry 96 Oxygen Delivery Method MDM - Neuro Symptoms/Deficit Lab Data Attestation: I reviewed the patient's lab results. 05/01/23 13:02 05/01/23 13:02 Labs: Lab Results 05/01/23 05/01/23 Range/Units 13:02 13:29 WBC 5.0 (4.5-11.0) X10^3/uL RBC 4.56 (4.0-5.2) X10^6/uL Hgb 13.9 (12.0-16.0) g/dL Hct 41.4 (36-46) % MCV 90.7 (80-100) fL MCH 30.5 (26-34) PG MCHC 33.6 (30-36) % RDW 13.5 (11.6-14.8) % Plt Count 162 (150-400) X10^3/uL Neut % (Auto) 49.6 L (50-75) % Lymph % (Auto) 39.4 (25-40) % [place] % (Auto) 8.9 (3-14) % Eos % (Auto) 1.3 L (2-4) % Baso % (Auto) 0.8 (0-2) % Neut # (Auto) 2500 (4075-5199) /uL Lymph # (Auto) 2000 (4378-3359) /uL [place] # (Auto) 400 (0-900) /uL Eos # (Auto) 100 (0-450) /uL Baso # (Auto) 0 (0-100) /uL PT 11.1 (9.4-12.5) SECONDS INR 1.0 (0.9-1.3) APTT 29 (25.1-36.5) SECONDS Sodium 135 L (137-145) mmol/L Potassium 4.0 (3.4-5.1) mmol/L Chloride 104 (98-107) mmol/L Carbon Dioxide 24 (22-32) mmol/L BUN 14 (7-17) mg/dL Creatinine 0.66 (0.52-1.04) mg/dL Estimated GFR > 60 (>60) mL/min BUN/Creatinine Ratio 21.2 (6-22) Glucose 131 H (80-110) mg/dL Calcium 9.3 (8.4-10.2) mg/dL Magnesium 2.0 (1.6-2.3) mg/dL Total Bilirubin 0.7 (0.2-1.3) mg/dL AST TNP ALT 16 (<35) IU/L Alkaline Phosphatase 64 (38-126) U/L Total Creatine Kinase 69 (30-135) U/L Troponin I < 0.012 (0.01-0.034) ng/mL Total Protein 7.2 (6.3-8.2) g/dL Albumin 4.1 (3.5-5.0) g/dL Globulin 3.1 (1.7-4.1) g/dL Albumin/Globulin Ratio 1.3 (1.0-2.8) Lipase 87 (23-300) U/L Urine RBC 1-5/hpf (0-5/HPF) Urine WBC None seen (0-5/HPF) Ur Squamous Epith Cells None seen (0-5/HPF) Urine Bacteria None seen (None) Ur Culture Indicated? Cult not indicated Urine Dip Bedside Urine Glucose Negative Bedside Urine Bilirubin - Negative Bedside Urine Ketone - Negative Urine Specific [place] 1.000 Bedside Urine Occult Blood +/- Bedside Urine pH 6.0 Bedside Urine Protein - Negative Bedside Urine Urobilinogen - Negative Bedside Urine Nitrite - Negative Bedside Urine Leukocytes - Negative Esterase Imaging Data CT scan - head: Radiologist's Impression: PROCEDURE: CT HEAD/BRAIN WO CON INDICATIONS: sudden dizziness TECHNIQUE: Noncontrast 4.5 mm thick angled axial sections acquired from the foramen magnum to the vertex, with coronal and sagittal reformats. For radiation dose reduction, the following was used: automated exposure control, adjustment of mA and/or kV according to patient size. COMPARISON: [facility], CT, CT HEAD/BRAIN WO ABISAI, 10/07/2019, 15:41. FINDINGS: Image quality: Diagnostic. CSF spaces: Basal cisterns are patent. No extra-axial fluid collections. The ventricles are symmetric in size and shape. Brain: No intracranial bleeds or masses. There is cerebral volume loss for age, with resultant ventricular and sulcal prominence. There are periventricular and deep white matter chronic small vessel ischemic changes. There is intracranial internal carotid artery atherosclerosis. Skull and face: Calvarium and visualized facial bones appear intact, without suspicious lesions. Sinuses: Visualized sinuses and mastoids are clear. IMPRESSION: 1. No acute intracranial process. 2. Mild atrophy and chronic microvascular ischemic changes. Chest x-ray: Radiologist's Impression: PROCEDURE: XR CHEST 1V INDICATIONS: chest pain TECHNIQUE: One view of the chest was acquired. COMPARISON: None. FINDINGS: Surgical changes and devices: None. Lungs and pleura: Lungs are clear. No pleural effusions or pneumothorax. Mediastinum: Mediastinal contours appear normal. Heart size is mildly prominent. Bones and chest wall: No suspicious bony lesions. Overlying soft tissues appear unremarkable. IMPRESSION: No acute pulmonary process. ECG Data Attestation: I personally reviewed and interpreted this ECG as follows: Interpretation: Sinus rhythm Ventricular rate is 60 Normal axis LVH No ST T wave changes MDM Narrative Medical decision making narrative: Patient's symptoms that she describes as a dizziness that was not vertigo that lasted for approximately 15 seconds and then resolved. She has been asymptomatic since then. She currently is asymptomatic. Head CT is unremarkable. EKGs unremarkable. Has a ABCD2 score of 1. I am not convinced this this was a TIA just given her presenting symptoms however had a long discussion with her and her regarding this. Will have her start on a baby aspirin. Will have her contact her primary care doctor for a follow-up to discuss further evaluation. We discussed the possibility of other etiologies such as in her ear. She states she has been having some hearing issues but that is not new today. She was given return precautions. She expressed understanding and agreement. Discharge Plan Departure Patient Disposition: Home Clinical Impression: Lightheadedness Instructions: DI for Dizziness-Nonvertigo Activity Restrictions/Additional Instructions: You can contact [phone]. This number can help you establish your primary care doctor here in the area. Recommend you continue to take all of your medications as directed. Also recommend that you start on a baby aspirin on a daily basis. Return to the emergency department for new or worsening symptoms. Prescriptions: No Action montelukast [Singulair] 10 MG tablet 10 mg PO BEDTIME Qty: 0 LEVOTHYROXINE SODIUM 100 mg PO QDAY Qty: 0 albuterol sulfate [Proventil HFA] 90 MCG/PUFF HFA aerosol inhaler 1 puff INH PRN Qty: 17 trazodone 50 MG tablet 50 mg OR HS Qty: 0 sumatriptan succinate 25 mg Tablet 25 mg PO PRN PRN (Reason: Migraine Headache) lisinopril 5 mg tablet 5 mg PO BEDTIME Referrals: Monica Albright ARNP [Primary Care Provider] - Stand Alone Forms: Patient Portal/API
[2023-05-01 13:57] LABS: Bacteria Urine None Seen; Culture Indicated Urine Cult Not Indicated; RBC Urine 1-5/HPF (0-5/HPF); Squamous Epithelial Cell Urine None Seen (0-5/HPF); WBC Urine None Seen (0-5/HPF)
[2023-05-03 16:03] LABS: HEMOLYSIS 25 (0-50)
[2023-05-03 16:04] LABS: Aspartate Aminotransferase 27 IU/L (14-36)
== END 2023-05-01 15:27 | disposition home or self-care (01) ==
PROVIDERS: Emergency Provider Emergency Medicine; Family Provider Nurse Practitioner; PCP Nurse Practitioner
DX: R42 Dizziness and giddiness (principal); R07.9 Chest pain, unspecified
CPT/HCPCS: 36415; 70450; 71045; 80053; 81003; 81015; 82550; 83690; 83735; 84484; 85025; 85610; 85730; 93005; 99284

== ENCOUNTER → 2024-02-24 13:51 | Outpatient (CLI) | payer MEDICARE, OTHER, SELFPAY ==
--- NOTE | 2024-02-24 | DI.MG.S_ITS ---
BILATERAL DIGITAL SCREENING MAMMOGRAM 3D/2D WITH CAD: 02/24/2024 CLINICAL: Routine screening. Comparison is made to exams dated: 10/03/2022 mammogram, 11/05/2019 mammogram, and 06/12/2018 mammogram - [facility]. There are scattered areas of fibroglandular density (category b / 25%-50% glandular tissue). Current study was also evaluated with a Computer Aided Detection (CAD) system. There are benign post operative findings in the right breast. No significant masses, calcifications, or other findings are seen in either breast. There has been no significant interval change. IMPRESSION: BENIGN There is no mammographic evidence of malignancy. A 1 year screening mammogram is recommended. Based on the Tyrer Cuzick model (a risk assessment model) the patient's lifetime risk is 2.6% and her 10 year risk is 0.0%. According to the ACR, ACS, and NCCN guidelines, an annual breast MRI exam along with mammogram is recommended if the patient's lifetime risk is 20% or greater. This exam was interpreted at Station ID: [id number]. NOTE: For mammograms, a report in lay terms will be sent to the patient. Approximately 15% of breast malignancies will not be visualized mammographically. In the management of a palpable breast mass, a negative mammogram must not discourage biopsy of a clinically suspicious lesion. Electronically Signed By: Roberto navarro/sander:02/24/2024 14:53:45 letter sent: Normal Exam ACR BI-RADS Category 2: Benign
== END ==
LOC: MAMMO 13:53
PROVIDERS: Family Provider Nurse Practitioner
DX: Z12.31 Encounter for screening mammogram for malignant neoplasm of breast (principal)
CPT/HCPCS: 77063; 77067